=== PATIENT | female | born 1970 | race African-American/Black ===

== ENCOUNTER 2024-06-19 02:26 | Emergency (ER) | payer OTHER ==
[~2024-06-19] VITALS: Ht 172.7 cm; Wt 90.9 kg
[2024-06-19 02:34] VITALS: TEMP 97.9
[2024-06-19] MEDS: TraMADol HCL 50 MG TABLET PO ONE (05:18)
[2024-06-19] MEDS: KETOROLAC TROMETHAMINE 30 MG/ML VIAL IM ONE (05:19)
[2024-06-19] MEDS: LIDOCAINE 5% TRANSDERMAL PATCH TD ONE (05:21)
[2024-06-19] MEDS ORDERED: CYCL-448 PO (06:20)
[2024-06-19] MEDS ORDERED: LIDO700A15 TP (06:30)
[2024-06-19 06:33] VITALS: BP 107/53; PULSE 63; RESP 16; O2SAT 99
== END 2024-06-19 06:34 | disposition home or self-care (01) ==
LOC: EMS 02:26
DX: S13.4XXA Sprain of ligaments of cervical spine, initial encounter (principal); X58.XXXA Exposure to other specified factors, initial encounter; Y93.89 Activity, other specified; Y92.89 Other specified places as the place of occurrence of the external cause; Y99.8 Other external cause status
CPT/HCPCS: 99283; 72040; 96372; J1885